=== PATIENT | female | born 1955 | race Caucasian/White ===

== ENCOUNTER 2020-04-07 15:12 | Emergency (ER) | payer OTHER ==
[~2020-04-07] VITALS: Ht 157.5 cm; Wt 72.6 kg
[~2020-04-07 15:12] MED LIST: OXYC10ER PO
[2020-04-07] MEDS ORDERED: Percocet 5-3251 EACH PO (16:54)
== END 2020-04-07 17:00 | disposition home or self-care (01) ==
LOC: ER 15:12
DX: M48.54XA Collapsed vertebra, not elsewhere classified, thoracic region, initial encounter for fracture (principal); Z87.828 Personal history of other (healed) physical injury and trauma; I25.2 Old myocardial infarction; E78.5 Hyperlipidemia, unspecified; F17.210 Nicotine dependence, cigarettes, uncomplicated; Z88.8 Allergy status to other drugs, medicaments and biological substances
CPT/HCPCS: 71045; 99283-25; A9270

== ENCOUNTER 2020-04-10 05:12 | Inpatient (IN) | payer OTHER ==
[~2020-04-10] VITALS: Ht 157.5 cm; Wt 77.7 kg
[~2020-04-10 05:12] MED LIST changes: +Percocet 5-3251 EACH PO
[2020-04-10 08:11] LABS: BASOPHILS ABSOLUTE AUTO 0.07 K/mm3 (0.00-0.23); BASOPHILS PERCENT AUTO 1 % (0-2); EOSINOPHILS ABSOLUTE AUTO 0.44 K/mm3 (0.00-0.68); EOSINOPHILS PERCENT AUTO 5 % (0-6); Hematocrit 39.1 % (33.0-51.0); Hemoglobin 12.6 g/dL (11.5-16.0); IMMATURE GRAN ABSOLUTE AUTO 0.03 K/mm3 (0.00-0.10); IMMATURE GRAN PERCENT AUTO 0 % (0-1); LYMPHOCYTES ABSOLUTE AUTO 1.67 K/mm3 (0.84-5.20); LYMPHOCYTES PERCENT AUTO 17 % (21-46); MONOCYTES ABSOLUTE AUTO 0.78 K/mm3 (0.16-1.47); MONOCYTES PERCENT AUTO 8 % (4-13); Mean Corpuscular HGB 28.8 pg (26.0-34.0); Mean Corpuscular HGB Conc 32.2 g/dL (31.5-36.5); Mean Corpuscular Volume 89 fL (80-100); NEUTROPHILS ABSOLUTE AUTO 6.72 K/mm3 (1.96-9.15); NEUTROPHILS PERCENT AUTO 69 % (41-73); Platelet Count 409 K/mm3 (150-400); RDW Coefficient Variation 13.8 % (11.7-14.2); RDW Standard Deviation 45.4 fL (35.1-46.3); Red Blood Cell Count 4.38 M/mm3 (3.80-5.20); White Blood Cell Count 9.71 K/mm3 (4.00-11.30)
[2020-04-10 08:14] LABS: Alanine Aminotransfer (ALT/SGP 30 U/L (12-78); Albumin, Blood 3.3 g/dL (3.4-5.0); Albumin/Globulin Ratio 0.9 (0.8-1.8); Alk Phos 111 U/L (50-136); Anion Gap 4 mmol/L (6-16); Aspartate Aminotrans (AST/SGOT 9 U/L (12-37); Bilirubin, Total 0.3 mg/dL (0.1-1.0); Blood Urea Nitrogen 13 mg/dL (8-24); Bun/Creatinine Ratio 22.8 (12.0-20.0); CO2, Blood 31 mmol/L (21-32); Calcium, Blood 9.2 mg/dL (8.5-10.1); Chloride, Blood 104 mmol/L (98-108); Creatinine, Blood 0.57 mg/dL (0.40-1.00); Globulin, Blood 3.8 g/dL (2.2-4.0); Glomerular Filtration Rate >60 (60-); Glucose, Blood 95 mg/dL (70-99); Potassium, Blood 4.3 mmol/L (3.5-5.5); Sodium, Blood 139 mmol/L (136-145); Total Protein, Blood 7.1 g/dL (6.4-8.2); Troponin I <0.015 ng/mL (0.000-0.040)
[2020-04-10 10:03] LABS: Influenza A, PCR NEGATIVE (NEGATIVE); Influenza B, PCR NEGATIVE (NEGATIVE); Resp Syncytial Virus, PCR NEGATIVE (NEGATIVE); SARS-Cov-2 (COVID-19) PCR, MMC NEGATIVE (NEGATIVE)
[2020-04-10] MEDS ORDERED: ZOLOFT100 M3 PO (16:08)
[2020-04-10] MEDS ORDERED: DIAZ5 PO (16:09)
[2020-04-10] MEDS ORDERED: TRAZ50 PO (16:10)
[2020-04-10] MEDS ORDERED: MELA3 PO (16:10)
[2020-04-10] MEDS ORDERED: HYDPAM50 PO (16:12)
[2020-04-10] MEDS ORDERED: ALBU90OI INH (16:13)
[2020-04-10] MEDS ORDERED: ASMANEX220 MC8 INH (16:16)
[2020-04-10] MEDS ORDERED: SPIRIVA RESPIMAT4 G2 NEB (16:17)
--- NOTE | 2020-04-10 18:17 | NUR ---
PT ADMITTED FROM ER FOR COPD. PT IS ALERT AND ORIENTED. PT ON 3 L O2 AND MANAGING WELL. NO ISSUES TO SKIN. LUNG SOUNDS DIMINISHED AT BASES. CALL LIGHT WITHIN REACH.
--- NOTE | 2020-04-10 19:05 | NUR ---
ASSUMED CARE RECEIVED REPORT FROM JIMMIE GALICIA. PT LYING IN BED, NO ACUTE DISTRESS NOTED. REQUESTING PAIN MEDICATION. WILL ASSESS AND MEDICATE PER EMAR. NO OTHER ACUTE NEEDS ASSESSED AT THIS TIME. CALL LIGHT, POSSESSIONS IN REACH, BED IN LOW POSITION. CONTINUE TO MONITOR.
--- NOTE | 2020-04-10 21:19 | NUR ---
SPOKE TO UMA JONES REGARDING PT'S UNRESOLVED PAIN, ORDERS RECEIVED. CONTINUE TO MONITOR.
[2020-04-11 03:54] LABS: PCO2 Arterial 47.1 mmHg (35-45); PO2 Arterial 61.2 mmHg (80-100); pH Blood Arterial 7.42 (7.35-7.45)
--- NOTE | 2020-04-11 04:18 | NUR ---
SHIFT SUMMARY PT RESTING, IN NO ACUTE DISTRESS. VS REVIEWED, WNL. PT SLEPT ON AND OFF T/O NIGHT. PAIN AND ANXIETY MANAGED WITH MEDS PER EMAR. PT ENCOURAGED TO PRONE SELF TO EASE RESPIRATORY EFFORT; DECLINED. ABLE TO SLEEP ON SIDE W/O DIFFICULTY. NO OTHER ACUTE CHANGES IN CONDITION NOTED. NO ACUTE NEEDS ASSESSED AT THIS TIME. CALL LIGHT, POSSESSIONS IN REACH, BED IN LOW POSITION. CONTINUE TO MONITOR, REPORT OFF TO DAY RN.
[2020-04-11 05:14] LABS: BASOPHILS ABSOLUTE AUTO 0.02 K/mm3 (0.00-0.23); BASOPHILS PERCENT AUTO 0 % (0-2); EOSINOPHILS PERCENT AUTO 0 % (0-6); Hematocrit 36.2 % (33.0-51.0); Hemoglobin 11.8 g/dL (11.5-16.0); IMMATURE GRAN ABSOLUTE AUTO 0.11 K/mm3 (0.00-0.10); IMMATURE GRAN PERCENT AUTO 1 % (0-1); LYMPHOCYTES ABSOLUTE AUTO 0.74 K/mm3 (0.84-5.20); LYMPHOCYTES PERCENT AUTO 5 % (21-46); MONOCYTES ABSOLUTE AUTO 0.16 K/mm3 (0.16-1.47); MONOCYTES PERCENT AUTO 1 % (4-13); Mean Corpuscular HGB 28.9 pg (26.0-34.0); Mean Corpuscular HGB Conc 32.6 g/dL (31.5-36.5); Mean Corpuscular Volume 89 fL (80-100); Mean Platelet Volume 9.2 fL (9.1-12.4); NEUTROPHILS ABSOLUTE AUTO 12.94 K/mm3 (1.96-9.15); NEUTROPHILS PERCENT AUTO 93 % (41-73); Platelet Count 394 K/mm3 (150-400); RDW Coefficient Variation 13.9 % (11.7-14.2); RDW Standard Deviation 45.4 fL (35.1-46.3); Red Blood Cell Count 4.08 M/mm3 (3.80-5.20); White Blood Cell Count 13.97 K/mm3 (4.00-11.30)
[2020-04-11 05:33] LABS: Anion Gap 4 mmol/L (6-16); Blood Urea Nitrogen 18 mg/dL (8-24); Bun/Creatinine Ratio 32.4 (12.0-20.0); CO2, Blood 29 mmol/L (21-32); Chloride, Blood 108 mmol/L (98-108); Creatinine, Blood 0.56 mg/dL (0.40-1.00); Glomerular Filtration Rate >60 (60-); Glucose, Blood 196 mg/dL (70-99); Potassium, Blood 4.4 mmol/L (3.5-5.5); Sodium, Blood 141 mmol/L (136-145)
[2020-04-11 11:12] LABS: U Amphetamine Screen DETECTED; U Barbituate Screen Not Detected; U Cocaine Screen Not Detected; U Methamphetamine Screen DETECTED
[2020-04-11 11:13] LABS: U Benzodiazapine Screen DETECTED; U Buprenorphine Screen Not Detected; U Cannabinoids Screen Not Detected; U Methadone Screen Not Detected; U Opiates Screen Not Detected; U Oxycodone Screen DETECTED; U Phencyclidine Screen Not Detected; U Propoxyphene Screen Not Detected
--- NOTE | 2020-04-11 16:40 | NUR ---
PT STATED IT WAS VERY PAINFUL WITH ADMINISTRATION OF MEDS. PULLED. PT HAS THREATENED TO LEAVE AMA SO WILL START NEW ONE WHEN SHE MAKES A DECISION. SLEEPING NOW. DOCTOR NOTIFIED.
--- NOTE | 2020-04-11 16:42 | NUR ---
PT HAS BEEN ANGRY MOST OF THE SHIFT. SHE STATES SHE IS NOT GETTING HER MEDS LIKE SHE DOES AT HOME. PT WAS THE ONE WHO GAVE NURSE HER MEDICATION AMOUNTS AND TIMES UPON ADMIT. PT IS OFTEN ANGRY IN ROOM SLAMMING BEDSIDE TABLE AROUND. SHE COMPLAINED OF PAIN WITH IV ADMINISTRATION SO IT WAS REMOVED PER HER REQUEST. NO NEW IV STARTED UNTIL PT HAS DECIDED WHAT HER PLANS ARE. PT GIVEN TORDOL SOON IT WAS TIME. 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 PT IS SLEEPING AT THIS TIME. DOCTOR NOTIFIED OF PT INTENT TO LEAVE AMA
--- NOTE | 2020-04-11 18:30 | NUR ---
Spiritualo care note: Cindy was quite angry and had no interest in speaking to product safety technical assistant. Advised I would remain available.
--- NOTE | 2020-04-11 19:39 | NUR ---
SPOKE WITH PT ABOUT WHETHER OR NOT SHE WAS PLANNING ON LEAVING AMA. PER REPORT PT HAD ALREADY STATED THAT SHE WAS GOING TO LEAVE AMA AND THEN ROLLED OVER AND WENT TO SLEEP. PT STATED THAT IT WAS UP TO "US". I EDUCATED PT ON HER RIGHTS. SHE STATED THAT SHE WILL WAIT UNTIL SHE CAN SPEAK WITH THE DOCTOR AGAIN. I INFORMED PT THAT THIS WOULD NOT BE UNTIL THE MORNING AND PT AGREED TO STAY FOR NOW. PT REQUESTED PAIN MEDICATION BUT IV WAS REMOVED SO PT COULD LEAVE AMA. PT HAD PERCOCET ORDERED SO THIS WAS GIVEN. HAND COUNTER AWARE OF NEED FOR NEW IV.
[2020-04-12] MEDS ORDERED: ACET325 PO (02:53)
--- NOTE | 2020-04-12 04:48 | NUR ---
SHIFT SUMMARY PT VERY ANGRY AND UPSET AT START OF SHIFT, INITIALLY PLANNING ON LEAVING AMA. PT DECIDED SHE WAS GOING TO STAY AND THEN BECAME VERY UPSET WHEN THIS RN WENT TO REMOVE HER LIDOCAINE PATCH PER ORDER SHE REPORTS THAT SHE WAS TOLD THAT IT WAS A FENTANYL PATCH. PT SPENT THE NEXT HOUR OR SO ON THE PHONE ATTEMPTING TO FIND OUT IF SHE WOULD HAVE TO PAY FOR HER VISIT IF SHE LEFT AMA. PT EVENTUALLY DECIDED TO STAY THROUGH THE NIGHT AGAIN. NEW IV PLACED TO RFA AT THIS TIME. PT EXPRESSED THAT SHE WAS UPSET BECAUSE SHE WAS TOLD THAT HER PAIN WOULD BE MANAGED BETTER. MEDICATED W/ ORDERED 1 MG IV DILAUDID. PT REPORTS SOME IMPROVEMENT AND CALMS DOWN. BREATHING IS LABORED WHILE AWAKE. THROATY BREATHING, ALMOST SOUNDING LIKE A DEEP STRIDOR. CONSULTED WITH RT MULTIPLE TIMES. PT REPORTS THAT THIS IS NOT ABNORMAL FOR HER AND SHE HAS HAD DIFFICULTIES FROM A PAST NECK SURGERY WHERE A NERVE WAS HIT UNINTENTIONALLY. PT REPORTS THAT SHE DOES NOT FEEL LIKE SHE IS HAVING DIFFICULTY BREATHING RELATED TO IT. PT DOES REPORT SOME SOB AND DIFFICULTY TAKING A DEEP BREATH RELATED TO PAIN FROM THORACIC FX. PT HAS MOIST SOUNDING NONPRODUCTIVE COUGH. LUNG SOUNDS MOSTLY JUST DECREASED THROUGHOUT. BREATHING TX'S PROVIDED BY RT THROUGHOUT THE NIGHT. PT MEDICATED FOR PAIN X 2 AND ANXIETY X 1. PT ON 2-3 L O2 VIA NC WITH O2 SATS IN THE MID 90'S. 85% ON RA. VITAL SIGNS HAVE BEEN STABLE. PT RESTING IN BED AT THIS TIME. WILL CONTINUE TO MONITOR AND REPORT TO DAY RN.
[2020-04-12] MEDS ORDERED: ALEN70 PO (14:54)
[2020-04-12] MEDS ORDERED: IPRAT-ALBUT 0.5-3 ML INH (15:02)
[2020-04-12] MEDS ORDERED: ZYRTEC10 M2 PO (15:03)
[2020-04-12] MEDS ORDERED: CYCL10 PO (15:04)
[2020-04-12] MEDS ORDERED: ETOD500 PO (15:05)
[2020-04-12] MEDS ORDERED: Flonase 0.05% N16 GM (15:06)
[2020-04-12] MEDS ORDERED: ROXICODONE5 MG PO (15:15)
--- NOTE | 2020-04-12 17:25 | NUR ---
SHIFT SUMMARY- PT A/O, PLEASANT AND COOPERATIVE T/O MOST OF THE DAY. PT INDEP UP TO BATHROOM. PT REPORTS UPPER BACK PAIN AND CHEST PAIN THAT INCREASES WITH RESPIRATIONS. LS COARSE AND DIMINISHED, PT WITH LABORED BREATHING THIS AM BUT DOES SEEM TO BE IMPROVED THIS EVENING AND NOT SO TACHY. SOB WITH EXERTION, MOIST NPC. PT MEDICATED WITH PERCOCET, FENTANYL PATCH STARTED TODAY. PT SLEPT ON AND OFF T/O THE DAY. NO OTHER ACUTE CHANGES THIS SHIFT.
--- NOTE | 2020-04-12 18:29 | NUR ---
PT AGITATED THIS EVENING THAT PEOPLE ARE LYING TO HER ABOUT THE MEDICATIONS, SHE REPORTS SHE TAKES SERTRALINE 200MG DAILY AND HYDROXYZINE 100MG BID PRN FOR ANXIETY AND USUALLY TAKES EVERY EVENING AT BEDTIME WITH TRAZADONE. THIS WAS VERIFIED WITH [facility] FOR DOS[facility]. SPOKE WITH DR ABEBE WHO REPORTS PUT PT BACK ON HOME DOSING. ORDERS UPDATED.
[2020-04-13 05:24] LABS: BASOPHILS ABSOLUTE AUTO 0.06 K/mm3 (0.00-0.23); BASOPHILS PERCENT AUTO 1 % (0-2); EOSINOPHILS ABSOLUTE AUTO 0.15 K/mm3 (0.00-0.68); EOSINOPHILS PERCENT AUTO 1 % (0-6); Hematocrit 39.4 % (33.0-51.0); Hemoglobin 12.6 g/dL (11.5-16.0); IMMATURE GRAN ABSOLUTE AUTO 0.05 K/mm3 (0.00-0.10); IMMATURE GRAN PERCENT AUTO 0 % (0-1); LYMPHOCYTES ABSOLUTE AUTO 3.07 K/mm3 (0.84-5.20); LYMPHOCYTES PERCENT AUTO 24 % (21-46); MONOCYTES ABSOLUTE AUTO 0.87 K/mm3 (0.16-1.47); MONOCYTES PERCENT AUTO 7 % (4-13); Mean Corpuscular Volume 91 fL (80-100); Mean Platelet Volume 8.9 fL (9.1-12.4); NEUTROPHILS ABSOLUTE AUTO 8.42 K/mm3 (1.96-9.15); NEUTROPHILS PERCENT AUTO 67 % (41-73); Platelet Count 422 K/mm3 (150-400); RDW Coefficient Variation 13.9 % (11.7-14.2); RDW Standard Deviation 46.1 fL (35.1-46.3); Red Blood Cell Count 4.35 M/mm3 (3.80-5.20); White Blood Cell Count 12.62 K/mm3 (4.00-11.30)
[2020-04-13 05:39] LABS: Anion Gap 3 mmol/L (6-16); Blood Urea Nitrogen 16 mg/dL (8-24); Bun/Creatinine Ratio 26.5 (12.0-20.0); CO2, Blood 32 mmol/L (21-32); Chloride, Blood 105 mmol/L (98-108); Glomerular Filtration Rate >60 (60-); Glucose, Blood 96 mg/dL (70-99); Potassium, Blood 3.7 mmol/L (3.5-5.5); Sodium, Blood 140 mmol/L (136-145)
--- NOTE | 2020-04-13 05:47 | NUR ---
SHIFT SUMMARY PT CONTINUED TO REPORT BACK PAIN FROM FX THAT MAKES IT DIFFICULT FOR HER TO TAKE A DEEP BREATH. MEDICATED X 3 WITH 1 MG IV DILAUDID. PT ALSO HAS FENTANYL PATCH IN PLACE. PAIN MORE SEVERE WITH MOVEMENT. PRN ATARAX GIVEN WITH PT'S HS MEDICATIONS PT REPORTS THIS IS HOW SHE TAKES IT AT HOME. PT WAS MUCH LESS ANXIOUS AND ANGRY THIS SHIFT. SLEPT OFF AND ON THROUGHOUT THE NIGHT. REMAINS ON 3 L O2 NC WITH O2 SATS IN THE MID 90'S. CONTINUES TO HAVE THROATY LABORED BREATHING, THAT BECOMES MORE SEVERE WHEN TALKING A LOT OR WHEN SHE BECOMES ANXIOUS. IMPROVED FROM NIGHT BEFORE. BLOOD PRESSURE ELEVATED THIS AM BUT WAS TAKEN WHILE PT WAS PAINFUL. WILL RECHECK. OTHERWISE VSS. WILL CONTINUE TO MONITOR AND REPORT TO DAY RN.
[2020-04-13] MEDS ORDERED: FENTANYL1 EA10 TOP (10:16)
[2020-04-13] MEDS ORDERED: MIACALCIN200 UNIT/1 INH (10:18)
[2020-04-13] MEDS ORDERED: DOCUZEN 8.6-501 EACH PO (10:20)
[2020-04-13] MEDS ORDERED: LIDO700A20 TOP (10:20)
[2020-04-13] MEDS ORDERED: LATUDA20 M1 PO (10:21)
[2020-04-13] MEDS ORDERED: MELA3 PO (10:21)
[2020-04-13] MEDS ORDERED: Percocet 5-3251 EACH PO (10:22)
--- NOTE | 2020-04-13 12:48 | NUR ---
PT LEFT THE HOSPITAL AND DID NOT WAIT FOR THE OXYGEN. PT EDUCATED ABOUT THE IMPORTANCE OF HOME O2; BUT COULD NOT WAIT AND VERY AGITATED. PT WITH , WHO WAS ALSO VERY RUDE AND AGITATED AND NOT WANTING TO WAIT . AROUND 1100; /PARTNER CAME IN, WHICH HE WAS NOT SUPPOSED TO BECAUSE IT'S NOT TIME FOR VISITING HOURS- AND WAS VERY AGITATED AND VERY RUDE TO THIS NURSE AND ANOTHER STAFF. THIS NURSE AND FAITH DISCUSSED THAT THE CAN WAIT IN THE CAR SINCE IT IS PROTOCOL AND PT IS ALERT TO RECEIVE PT INSTRUCTIONS/EDUCATION MEDICATIONS. HE STATED THAT HE WANTS TO TALK WITH ANOTHER PERSONNEL THAT KNOWS AND VERY ANGRY. ENGINE SETTER SALLY TALKED TO THE PT ABOUT THE RISK OF GOING HOME WITHOUT O2 COULD BE , ESPECIALLY WITH HER CONDITION, BUT THIS PT IGNORED IT AND VERY ANGRY WITH A LOUD VOICE. PT DID NOT SIGN THE AMA FORM, BUT SIGNED THE DISCHARGE PAPER. PT GIVEN PACKET AND REFUSED TO BE EDUCATED ABOUT NEW MEDS AND FU APPOINTMENTS AND STATED "I DONT CARE AND I DONT WANT TO KNOW." IV DC'D AND VALUABLE ITEMS WITH PT. MEDICATIONS WAS FAXED TO THE PHARMACY AND PT AWARE. CALLED JIMMIE MATIAS WHO WAS WORKING FOR THE O2 OF THIS PT AND SHE STATED SHE WILL INFORM DOCTOR AND MIGHT HAVE TO SEND THE O2 TO THIS PT HOME. PT WAS NOT SEEN WHEN SHE ACTUALLY LEFT THE BUILDING BECAUSE THIS NURSE WAS AT THE OTHER PATIENT ROOM. ENGINE SETTER AWARE.
== END 2020-04-13 12:30 | disposition home or self-care (01) | DRG 189 ==
LOC: ER 05:12 → MEDS 10:42 → ERHOLD 10:42 → MEDS 15:48 → ENPENDDIS 04-13 09:28 → MEDS 04-13 12:30
PROVIDERS: Emergency Medicine; Internal Medicine; Nurse Practitioner Acute Care; ADMIT Family Medicine
DX: J96.21 Acute and chronic respiratory failure with hypoxia (principal); S22.050A Wedge compression fracture of T5-T6 vertebra, initial encounter for closed fracture; Z66 Do not resuscitate; F31.9 Bipolar disorder, unspecified; J44.9 Chronic obstructive pulmonary disease, unspecified; Z20.822 Contact with and (suspected) exposure to COVID-19; E78.5 Hyperlipidemia, unspecified; F32.9 Major depressive disorder, single episode, unspecified; M81.0 Age-related osteoporosis without current pathological fracture; F41.1 Generalized anxiety disorder; E28.2 Polycystic ovarian syndrome; F15.10 Other stimulant abuse, uncomplicated; G89.4 Chronic pain syndrome; F17.210 Nicotine dependence, cigarettes, uncomplicated; Z99.81 Dependence on supplemental oxygen; I25.2 Old myocardial infarction
CPT/HCPCS: 0241U; 36415; 36600; 71045; 71260; 80048; 80053; 82803; 83605; 83690; 84145; 84484; 85025; 87040; 87449; 93005; 93010; 94640; 94760; 94761; 96365-59; 96375-59; 96376-59; 97116; 97161; 99285-25; A9270; J0456; J0696; J1170; J1650; J1885; J2405; J2930; J3010; J3475; J7050; J7512; Q9967

== ENCOUNTER 2020-04-20 12:09 | Emergency (ER) | payer OTHER ==
[~2020-04-20] VITALS: Ht 162.6 cm; Wt 77.1 kg
[~2020-04-20 12:09] MED LIST changes: +ACET325 PO; +ALBU90OI INH; +ALEN70 PO; +ASMANEX220 MC8 INH; +CYCL10 PO; +DIAZ5 PO; +DOCUZEN 8.6-501 EACH PO; +ETOD500 PO; +FENTANYL1 EA10 TOP; +Flonase 0.05% N16 GM; +HYDPAM50 PO; +IPRAT-ALBUT 0.5-3 ML INH; +LATUDA20 M1 PO; +LIDO700A20 TOP; +MELA3 PO; +MIACALCIN200 UNIT/1 INH; +ROXICODONE5 MG PO; +SPIRIVA RESPIMAT4 G2 NEB; +TRAZ50 PO; +ZOLOFT100 M3 PO; +ZYRTEC10 M2 PO
[2020-04-20 13:18] LABS: BASOPHILS ABSOLUTE AUTO 0.05 K/mm3 (0.00-0.23); BASOPHILS PERCENT AUTO 0 % (0-2); EOSINOPHILS ABSOLUTE AUTO 0.28 K/mm3 (0.00-0.68); EOSINOPHILS PERCENT AUTO 2 % (0-6); Hematocrit 39.8 % (33.0-51.0); IMMATURE GRAN ABSOLUTE AUTO 0.06 K/mm3 (0.00-0.10); IMMATURE GRAN PERCENT AUTO 0 % (0-1); LYMPHOCYTES PERCENT AUTO 6 % (21-46); MONOCYTES ABSOLUTE AUTO 0.79 K/mm3 (0.16-1.47); MONOCYTES PERCENT AUTO 5 % (4-13); Mean Corpuscular HGB 28.5 pg (26.0-34.0); Mean Corpuscular HGB Conc 32.7 g/dL (31.5-36.5); Mean Corpuscular Volume 87 fL (80-100); Mean Platelet Volume 8.7 fL (9.1-12.4); NEUTROPHILS PERCENT AUTO 86 % (41-73); Platelet Count 357 K/mm3 (150-400); RDW Coefficient Variation 13.1 % (11.7-14.2); Red Blood Cell Count 4.56 M/mm3 (3.80-5.20); White Blood Cell Count 15.98 K/mm3 (4.00-11.30)
[2020-04-20 13:50] LABS: Alanine Aminotransfer (ALT/SGP 28 U/L (12-78); Albumin, Blood 3.2 g/dL (3.4-5.0); Albumin/Globulin Ratio 0.9 (0.8-1.8); Alk Phos 107 U/L (50-136); Anion Gap 5 mmol/L (6-16); Aspartate Aminotrans (AST/SGOT 13 U/L (12-37); Bilirubin, Total 0.4 mg/dL (0.1-1.0); Blood Urea Nitrogen 14 mg/dL (8-24); Bun/Creatinine Ratio 23.5 (12.0-20.0); CO2, Blood 28 mmol/L (21-32); Calcium, Blood 8.9 mg/dL (8.5-10.1); Chloride, Blood 107 mmol/L (98-108); Globulin, Blood 3.7 g/dL (2.2-4.0); Glomerular Filtration Rate >60 (60-); Glucose, Blood 97 mg/dL (70-99); Potassium, Blood 4.2 mmol/L (3.5-5.5); Sodium, Blood 140 mmol/L (136-145); Total Protein, Blood 6.9 g/dL (6.4-8.2); Troponin I <0.015 ng/mL (0.000-0.040)
[2020-04-20] MEDS ORDERED: OXAYDO5 M1 PO (16:34)
--- NOTE | 2020-04-20 18:58 | NUR ---
Pt very very anxious and paranoid stuggles to follow conversation due to pain and her anexiety. She fears leaving her dogs. She is out of pain meds and and having spasms. pt sitting up on side of bed trying to splint her chest due to the back pain. She refused to be admitted. Thried twice to get her to agree. Discussted her [facility] benefits her mental illness her substance abuse. Pt is frail and needs more assistance. Supenct she is getting forgetfull and loosing some abilites. She states her nephew has been trying to help her more. pt wants hospice and to be with her dogs. ADvised her she may need iam in patient time and treatment. Will get hospice consult and suggest ethic consult on this case. Will work with pet care associate on thursday to contact [place].
== END 2020-04-20 17:00 | disposition home or self-care (01) ==
LOC: ER 12:09
PROVIDERS: Physician Assistant
DX: M48.54XA Collapsed vertebra, not elsewhere classified, thoracic region, initial encounter for fracture (principal); J44.9 Chronic obstructive pulmonary disease, unspecified; E78.5 Hyperlipidemia, unspecified; I25.2 Old myocardial infarction; F17.210 Nicotine dependence, cigarettes, uncomplicated; Z88.8 Allergy status to other drugs, medicaments and biological substances; Z99.81 Dependence on supplemental oxygen; Z79.899 Other long term (current) drug therapy; Z79.51 Long term (current) use of inhaled steroids
CPT/HCPCS: 36415; 71046; 80053; 84484; 85025; 93005; 93010; 99284-25; A9270

== ENCOUNTER 2020-04-23 09:10 | Emergency (ER) | payer OTHER ==
[~2020-04-23] VITALS: Ht 157.5 cm; Wt 77.1 kg
[~2020-04-23 09:10] MED LIST changes: +OXAYDO5 M1 PO
[2020-04-23 10:15] LABS: BASOPHILS ABSOLUTE AUTO 0.06 K/mm3 (0.00-0.23); BASOPHILS PERCENT AUTO 1 % (0-2); EOSINOPHILS ABSOLUTE AUTO 0.32 K/mm3 (0.00-0.68); EOSINOPHILS PERCENT AUTO 3 % (0-6); Hematocrit 39.9 % (33.0-51.0); IMMATURE GRAN ABSOLUTE AUTO 0.05 K/mm3 (0.00-0.10); IMMATURE GRAN PERCENT AUTO 1 % (0-1); LYMPHOCYTES ABSOLUTE AUTO 1.22 K/mm3 (0.84-5.20); LYMPHOCYTES PERCENT AUTO 12 % (21-46); MONOCYTES ABSOLUTE AUTO 0.56 K/mm3 (0.16-1.47); MONOCYTES PERCENT AUTO 6 % (4-13); Mean Corpuscular HGB 28.7 pg (26.0-34.0); Mean Corpuscular HGB Conc 32.6 g/dL (31.5-36.5); Mean Corpuscular Volume 88 fL (80-100); Mean Platelet Volume 8.9 fL (9.1-12.4); NEUTROPHILS ABSOLUTE AUTO 7.63 K/mm3 (1.96-9.15); NEUTROPHILS PERCENT AUTO 78 % (41-73); Platelet Count 431 K/mm3 (150-400); RDW Standard Deviation 42.4 fL (35.1-46.3); Red Blood Cell Count 4.53 M/mm3 (3.80-5.20); White Blood Cell Count 9.84 K/mm3 (4.00-11.30)
[2020-04-23 10:46] LABS: Alanine Aminotransfer (ALT/SGP 41 U/L (12-78); Albumin, Blood 3.2 g/dL (3.4-5.0); Albumin/Globulin Ratio 0.8 (0.8-1.8); Alk Phos 119 U/L (50-136); Anion Gap 2 mmol/L (6-16); Aspartate Aminotrans (AST/SGOT 26 U/L (12-37); Bilirubin, Total 0.3 mg/dL (0.1-1.0); Blood Urea Nitrogen 17 mg/dL (8-24); Bun/Creatinine Ratio 27.4 (12.0-20.0); CO2, Blood 32 mmol/L (21-32); Calcium, Blood 9.8 mg/dL (8.5-10.1); Chloride, Blood 104 mmol/L (98-108); Creatinine, Blood 0.62 mg/dL (0.40-1.00); Globulin, Blood 4.2 g/dL (2.2-4.0); Glomerular Filtration Rate >60 (60-); Glucose, Blood 106 mg/dL (70-99); Potassium, Blood 4.5 mmol/L (3.5-5.5); Sodium, Blood 138 mmol/L (136-145); Total Protein, Blood 7.4 g/dL (6.4-8.2)
[2020-04-23 11:26] LABS: Source, Urine Voided
[2020-04-23 11:43] LABS: Appearance, Urine Clear (Clear); Bilirubin, Urine Neg (Neg); Blood, Urine 1+ (Neg); Color, Urine Yellow (P-Yellow); Glucose Qualitative, Urine Neg (Neg); Ketones, Urine Neg (Neg); Leukocyte Esterase, Urine 2+ (Neg); Nitrite, Urine Neg (Neg); Protein, Urine Neg (Neg); Urobilinogen, Urine NORM (Normal)
[2020-04-23 12:25] LABS: Bacteria Rare /hpf; Squamous Epithelial Cells Few /hpf (Few); Transitional Epithelial Cells Rare /hpf (0-Rare)
[2020-04-23] MEDS ORDERED: Neurontin 100100 MG PO (14:32)
[2020-04-23] MEDS ORDERED: IBUP600 PO (14:32)
--- NOTE | 2020-04-23 20:08 | NUR ---
Spoke with mrs george in ER this morning. continue to have significant pain and dyspnea. pt may be declining in her abilites and cognition. Spoke with car managment team about [facility] getting more involved in care and hospice. pt get very anxious and paranoid and fearfull of leaving her dogs and her home. Refuses admission to hospital. Will contact [facility] and [facility]PS as pt high risk for injury.
--- NOTE | 2020-04-24 08:47 | NUR ---
call to [place] palliative care team and APS to help pt.
--- NOTE | 2020-04-24 13:53 | NUR ---
REturn call from APS pt under 65 may not be able to help. Will look at services. Recieved call from [facility] from palliative nurse. Pt has had phone follow ups from her mental health worker. She has not made her in person appointments. Called pt to review plan of care suggested she ask for wheel chair transport. Review strtegies of help. Suggested she get respite care from [facility] [place] for her dogs if she needs time in the hospital.
--- NOTE | 2020-04-27 13:21 | NUR ---
[facility].
== END 2020-04-23 14:58 | disposition home or self-care (01) ==
LOC: ER 09:10
PROVIDERS: Emergency Medicine; Physician Assistant
DX: M54.16 Radiculopathy, lumbar region (principal); J44.9 Chronic obstructive pulmonary disease, unspecified; Z88.8 Allergy status to other drugs, medicaments and biological substances; Z79.899 Other long term (current) drug therapy
CPT/HCPCS: 36415; 80053; 81001; 83690; 85025; 87086; 96374; 96375; 96376; 99284-25; J1885

== ENCOUNTER 2020-04-27 15:17 | Emergency (ER) | payer OTHER, MEDICARE ==
[~2020-04-27] VITALS: Ht 157.5 cm; Wt 77.1 kg
[~2020-04-27 15:17] MED LIST changes: +IBUP600 PO; +Neurontin 100100 MG PO
[2020-04-27 16:01] LABS: BASOPHILS ABSOLUTE AUTO 0.07 K/mm3 (0.00-0.23); BASOPHILS PERCENT AUTO 1 % (0-2); EOSINOPHILS PERCENT AUTO 4 % (0-6); Hematocrit 39.9 % (33.0-51.0); Hemoglobin 13.3 g/dL (11.5-16.0); IMMATURE GRAN ABSOLUTE AUTO 0.04 K/mm3 (0.00-0.10); IMMATURE GRAN PERCENT AUTO 0 % (0-1); LYMPHOCYTES ABSOLUTE AUTO 2.25 K/mm3 (0.84-5.20); LYMPHOCYTES PERCENT AUTO 21 % (21-46); MONOCYTES PERCENT AUTO 8 % (4-13); Mean Corpuscular HGB 28.5 pg (26.0-34.0); Mean Corpuscular HGB Conc 33.3 g/dL (31.5-36.5); Mean Corpuscular Volume 85 fL (80-100); Mean Platelet Volume 8.5 fL (9.1-12.4); NEUTROPHILS ABSOLUTE AUTO 6.97 K/mm3 (1.96-9.15); NEUTROPHILS PERCENT AUTO 66 % (41-73); Platelet Count 556 K/mm3 (150-400); RDW Coefficient Variation 12.8 % (11.7-14.2); RDW Standard Deviation 39.8 fL (35.1-46.3); Red Blood Cell Count 4.67 M/mm3 (3.80-5.20); White Blood Cell Count 10.53 K/mm3 (4.00-11.30)
[2020-04-27 16:20] LABS: Alanine Aminotransfer (ALT/SGP 25 U/L (12-78); Albumin, Blood 3.5 g/dL (3.4-5.0); Albumin/Globulin Ratio 0.9 (0.8-1.8); Alk Phos 102 U/L (50-136); Anion Gap 5 mmol/L (6-16); Aspartate Aminotrans (AST/SGOT 13 U/L (12-37); Bilirubin, Total 0.3 mg/dL (0.1-1.0); Blood Urea Nitrogen 17 mg/dL (8-24); Bun/Creatinine Ratio 26.6 (12.0-20.0); CO2, Blood 28 mmol/L (21-32); Calcium, Blood 9.6 mg/dL (8.5-10.1); Chloride, Blood 105 mmol/L (98-108); Creatinine, Blood 0.64 mg/dL (0.40-1.00); Globulin, Blood 3.8 g/dL (2.2-4.0); Glomerular Filtration Rate >60 (60-); Glucose, Blood 104 mg/dL (70-99); Potassium, Blood 4.3 mmol/L (3.5-5.5); Sodium, Blood 138 mmol/L (136-145); Total Protein, Blood 7.3 g/dL (6.4-8.2)
[2020-04-27] MEDS ORDERED: Percocet 5-3251 EACH PO (16:54)
--- NOTE | 2020-04-27 17:58 | NUR ---
Several calls To the [facility] for assistance with a hospice plan. Pt has had several visits to the emergency room and the [facility]. Pt has significant history of bipolar. She has been missing her phone appointments for medication managment. Her struggles with dyspnea has been more difficult due to t6 fracture of the spine. Pt has significant anexiety states she at one time had significant aspiration until they did a repeat fussion on her neck. 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 She has been very distraught by this information. She had a recent admission to hospital for respirtory failure. She is hesitant to be admitted again. She get anxious about being away from her dogs. Further assessment of her ADLS. She has stopped driving due to the fact her new care has safety features that keep telling her to pullman car clerk and rest. Therputic calls to patient for support. Advised her [facility] accepted her she denies need for any extr equipment she has oxygen [facility] the [facility].
== END 2020-04-27 17:09 | disposition home or self-care (01) ==
LOC: ER 15:17
PROVIDERS: Physician Assistant
DX: M48.54XA Collapsed vertebra, not elsewhere classified, thoracic region, initial encounter for fracture (principal); J44.9 Chronic obstructive pulmonary disease, unspecified; E78.5 Hyperlipidemia, unspecified; I25.2 Old myocardial infarction; F17.210 Nicotine dependence, cigarettes, uncomplicated; Z88.8 Allergy status to other drugs, medicaments and biological substances; Z79.899 Other long term (current) drug therapy
CPT/HCPCS: 36415; 71045; 80053; 85025; 96374; 96375; 99283-25; J1170; J2405

== ENCOUNTER 2020-08-13 18:24 | Emergency (ER) | payer OTHER, MEDICARE ==
[~2020-08-13] VITALS: Ht 157.5 cm; Wt 63.5 kg
[2020-08-13] MEDS ORDERED: HALO2 PO (18:37)
[2020-08-13 19:00] LABS: BASOPHILS ABSOLUTE AUTO 0.05 K/mm3 (0.00-0.23); BASOPHILS PERCENT AUTO 1 % (0-2); EOSINOPHILS ABSOLUTE AUTO 0.07 K/mm3 (0.00-0.68); EOSINOPHILS PERCENT AUTO 1 % (0-6); Hematocrit 40.8 % (33.0-51.0); Hemoglobin 13.7 g/dL (11.5-16.0); IMMATURE GRAN ABSOLUTE AUTO 0.03 K/mm3 (0.00-0.10); IMMATURE GRAN PERCENT AUTO 0 % (0-1); LYMPHOCYTES ABSOLUTE AUTO 2.93 K/mm3 (0.84-5.20); LYMPHOCYTES PERCENT AUTO 29 % (21-46); MONOCYTES ABSOLUTE AUTO 0.61 K/mm3 (0.16-1.47); MONOCYTES PERCENT AUTO 6 % (4-13); Mean Corpuscular HGB 27.5 pg (26.0-34.0); Mean Corpuscular HGB Conc 33.6 g/dL (31.5-36.5); Mean Corpuscular Volume 82 fL (80-100); Mean Platelet Volume 9.3 fL (9.1-12.4); NEUTROPHILS ABSOLUTE AUTO 6.39 K/mm3 (1.96-9.15); NEUTROPHILS PERCENT AUTO 63 % (41-73); Platelet Count 395 K/mm3 (150-400); RDW Standard Deviation 44.8 fL (35.1-46.3); Red Blood Cell Count 4.99 M/mm3 (3.80-5.20); White Blood Cell Count 10.08 K/mm3 (4.00-11.30)
[2020-08-13 19:22] LABS: Alanine Aminotransfer (ALT/SGP 16 U/L (12-78); Albumin, Blood 3.5 g/dL (3.4-5.0); Albumin/Globulin Ratio 0.9 (0.8-1.8); Alk Phos 83 U/L (50-136); Anion Gap 5 mmol/L (6-16); Aspartate Aminotrans (AST/SGOT 9 U/L (12-37); Bilirubin, Total 0.4 mg/dL (0.1-1.0); Blood Urea Nitrogen 8 mg/dL (8-24); Bun/Creatinine Ratio 13.1 (12.0-20.0); CO2, Blood 25 mmol/L (21-32); Calcium, Blood 9.4 mg/dL (8.5-10.1); Chloride, Blood 107 mmol/L (98-108); Creatinine, Blood 0.61 mg/dL (0.40-1.00); Globulin, Blood 3.7 g/dL (2.2-4.0); Glomerular Filtration Rate >60 (60-); Glucose, Blood 104 mg/dL (70-99); Sodium, Blood 137 mmol/L (136-145); Total Protein, Blood 7.2 g/dL (6.4-8.2)
[2020-08-13] MEDS ORDERED: Miralax17 GM PO (19:57)
== END 2020-08-13 19:40 | disposition home or self-care (01) ==
LOC: ER 18:24
PROVIDERS: Emergency Medicine
DX: K59.00 Constipation, unspecified (principal); J44.9 Chronic obstructive pulmonary disease, unspecified; E78.5 Hyperlipidemia, unspecified; Z88.8 Allergy status to other drugs, medicaments and biological substances; F17.210 Nicotine dependence, cigarettes, uncomplicated
CPT/HCPCS: 36415; 80053; 83690; 85025; 93005; 93010; 99284-25

== ENCOUNTER 2020-08-26 13:58 | Emergency (ER) | payer OTHER ==
[~2020-08-26] VITALS: Ht 152.4 cm; Wt 65.8 kg
[~2020-08-26 13:58] MED LIST changes: +HALO2 PO; +Miralax17 GM PO
[2020-08-26 14:30] LABS: BASOPHILS ABSOLUTE AUTO 0.05 K/mm3 (0.00-0.23); BASOPHILS PERCENT AUTO 1 % (0-2); EOSINOPHILS ABSOLUTE AUTO 0.19 K/mm3 (0.00-0.68); EOSINOPHILS PERCENT AUTO 2 % (0-6); Hematocrit 43.3 % (33.0-51.0); Hemoglobin 14.6 g/dL (11.5-16.0); IMMATURE GRAN ABSOLUTE AUTO 0.03 K/mm3 (0.00-0.10); IMMATURE GRAN PERCENT AUTO 0 % (0-1); LYMPHOCYTES PERCENT AUTO 35 % (21-46); MONOCYTES ABSOLUTE AUTO 0.77 K/mm3 (0.16-1.47); MONOCYTES PERCENT AUTO 8 % (4-13); Mean Corpuscular HGB Conc 33.7 g/dL (31.5-36.5); Mean Corpuscular Volume 83 fL (80-100); Mean Platelet Volume 9.3 fL (9.1-12.4); NEUTROPHILS ABSOLUTE AUTO 5.29 K/mm3 (1.96-9.15); NEUTROPHILS PERCENT AUTO 54 % (41-73); Platelet Count 404 K/mm3 (150-400); RDW Coefficient Variation 15.4 % (11.7-14.2); RDW Standard Deviation 46.7 fL (35.1-46.3); Red Blood Cell Count 5.21 M/mm3 (3.80-5.20); White Blood Cell Count 9.73 K/mm3 (4.00-11.30)
[2020-08-26 14:55] LABS: Alanine Aminotransfer (ALT/SGP 23 U/L (12-78); Albumin/Globulin Ratio 1.2 (0.8-1.8); Alk Phos 85 U/L (50-136); Anion Gap 7 mmol/L (6-16); Aspartate Aminotrans (AST/SGOT 14 U/L (12-37); Bilirubin, Total 0.3 mg/dL (0.1-1.0); Blood Urea Nitrogen 20 mg/dL (8-24); Bun/Creatinine Ratio 35.8 (12.0-20.0); CO2, Blood 25 mmol/L (21-32); Calcium, Blood 9.6 mg/dL (8.5-10.1); Chloride, Blood 106 mmol/L (98-108); Creatinine, Blood 0.56 mg/dL (0.40-1.00); Globulin, Blood 3.3 g/dL (2.2-4.0); Glomerular Filtration Rate >60 (60-); Glucose, Blood 106 mg/dL (70-99); Sodium, Blood 138 mmol/L (136-145); Total Protein, Blood 7.3 g/dL (6.4-8.2); Troponin I <0.015 ng/mL (0.000-0.040)
[2020-08-26] MEDS ORDERED: Doxycycline Mo100 M1 PO (15:06)
== END 2020-08-26 15:32 | disposition home or self-care (01) ==
LOC: ER 13:58
PROVIDERS: Physician Assistant
DX: R06.00 Dyspnea, unspecified (principal); R07.1 Chest pain on breathing; Z79.899 Other long term (current) drug therapy
CPT/HCPCS: 36415; 71046; 80053; 84484; 85025; 93005; 93010; 99284-25

== ENCOUNTER 2020-12-29 11:05 | Emergency (ER) | payer OTHER ==
[~2020-12-29] VITALS: Ht 152.4 cm; Wt 43.1 kg
[~2020-12-29 11:05] MED LIST changes: +Doxycycline Mo100 M1 PO
[2020-12-29 12:10] LABS: BASOPHILS ABSOLUTE AUTO 0.05 K/mm3 (0.00-0.23); BASOPHILS PERCENT AUTO 1 % (0-2); EOSINOPHILS ABSOLUTE AUTO 0.14 K/mm3 (0.00-0.68); EOSINOPHILS PERCENT AUTO 2 % (0-6); Hematocrit 46.6 % (33.0-51.0); Hemoglobin 15.4 g/dL (11.5-16.0); IMMATURE GRAN ABSOLUTE AUTO 0.02 K/mm3 (0.00-0.10); IMMATURE GRAN PERCENT AUTO 0 % (0-1); LYMPHOCYTES ABSOLUTE AUTO 2.12 K/mm3 (0.84-5.20); LYMPHOCYTES PERCENT AUTO 27 % (21-46); MONOCYTES ABSOLUTE AUTO 0.52 K/mm3 (0.16-1.47); MONOCYTES PERCENT AUTO 7 % (4-13); Mean Corpuscular Volume 88 fL (80-100); Mean Platelet Volume 9.2 fL (9.1-12.4); NEUTROPHILS ABSOLUTE AUTO 5.01 K/mm3 (1.96-9.15); NEUTROPHILS PERCENT AUTO 64 % (41-73); Platelet Count 461 K/mm3 (150-400); RDW Coefficient Variation 12.8 % (11.7-14.2); RDW Standard Deviation 41.1 fL (35.1-46.3); Red Blood Cell Count 5.31 M/mm3 (3.80-5.20); White Blood Cell Count 7.86 K/mm3 (4.00-11.30)
[2020-12-29 12:35] LABS: Alanine Aminotransfer (ALT/SGP 19 U/L (12-78); Albumin, Blood 3.9 g/dL (3.4-5.0); Alk Phos 98 U/L (50-136); Anion Gap 5 mmol/L (6-16); Aspartate Aminotrans (AST/SGOT 12 U/L (12-37); Bilirubin, Total 0.5 mg/dL (0.1-1.0); Blood Urea Nitrogen 7 mg/dL (8-24); Bun/Creatinine Ratio 12.6 (12.0-20.0); CO2, Blood 27 mmol/L (21-32); Chloride, Blood 107 mmol/L (98-108); Creatinine, Blood 0.56 mg/dL (0.40-1.00); Globulin, Blood 3.8 g/dL (2.2-4.0); Glomerular Filtration Rate >60 (60-); Glucose, Blood 105 mg/dL (70-99); Potassium, Blood 3.9 mmol/L (3.5-5.5); Sodium, Blood 139 mmol/L (136-145); Total Protein, Blood 7.7 g/dL (6.4-8.2); Troponin I <0.015 ng/mL (0.000-0.040)
[2020-12-29 13:28] LABS: Source, Urine Clean Catch
[2020-12-29 13:36] LABS: Appearance, Urine Clear (Clear); Bilirubin, Urine Neg (Neg); Blood, Urine 2+ (Neg); Color, Urine Yellow (P-Yellow); Glucose Qualitative, Urine Neg (Neg); Ketones, Urine 2+ (Neg); Leukocyte Esterase, Urine 1+ (Neg); Nitrite, Urine Neg (Neg); Protein, Urine 2+ (Neg); Specific Gravity, Urine 1.025 (1.003-1.022); Urobilinogen, Urine NORM (Normal)
[2020-12-29 13:56] LABS: Bacteria Rare /hpf; Red Blood Cells, Urine 0-2 /hpf (0-2); Squamous Epithelial Cells Few /hpf (Few); Transitional Epithelial Cells Rare /hpf (0-Rare); White Blood Cells, Urine 0-2 /hpf (0-5)
[2020-12-29] MEDS ORDERED: NITR100CA PO (14:04)
[2020-12-29] MEDS ORDERED: Ventolin5 MG/1 ML INH (14:04)
[2020-12-29] MEDS ORDERED: PRED20 PO (14:04)
[2020-12-29 14:18] LABS: U Amphetamine Screen Not Detected; U Barbituate Screen Not Detected; U Benzodiazapine Screen Not Detected; U Buprenorphine Screen Not Detected; U Cannabinoids Screen DETECTED; U Cocaine Screen Not Detected; U Methadone Screen Not Detected; U Methamphetamine Screen Not Detected; U Opiates Screen Not Detected; U Oxycodone Screen DETECTED; U Phencyclidine Screen Not Detected; U Propoxyphene Screen Not Detected
== END 2020-12-29 14:26 | disposition home or self-care (01) ==
LOC: ER 11:05
PROVIDERS: Emergency Medicine; Physician Assistant
DX: J44.1 Chronic obstructive pulmonary disease with (acute) exacerbation (principal); R35.0 Frequency of micturition; R30.0 Dysuria; Z88.8 Allergy status to other drugs, medicaments and biological substances; Z79.899 Other long term (current) drug therapy; I25.2 Old myocardial infarction; E78.5 Hyperlipidemia, unspecified; G47.33 Obstructive sleep apnea (adult) (pediatric); F17.210 Nicotine dependence, cigarettes, uncomplicated
CPT/HCPCS: 36415; 71046; 80053; 81001; 84484; 85025; 87086; 93005; 93010; 94644; 96374; 99285-25; G0480; J2930

== ENCOUNTER 2023-07-30 14:16 | Inpatient (IN) | payer OTHER, MEDICARE ==
[~2023-07-30] VITALS: Ht 160 cm; Wt 63.0 kg
[~2023-07-30 14:16] MED LIST changes: -ASMANEX220 MC8 INH; +AZIT250 PO; +BUPRENORPHINE HC2 MG; +DULERA 100 MCG/13 GM INH; +HYDHCL25 PO; +MELATONIN5 M1 PO; +NITR100CA PO; +PRED20 PO; +SERT50 PO; +THERA-D2000 UNIT PO; +Ventolin5 MG/1 ML INH; -ZOLOFT100 M3 PO
[2023-07-30 14:43] LABS: BASOPHILS PERCENT AUTO 0 % (0-2); EOSINOPHILS ABSOLUTE AUTO 0.26 K/mm3 (0.00-0.68); EOSINOPHILS PERCENT AUTO 1 % (0-6); Hematocrit 39.8 % (33.0-51.0); Hemoglobin 13.4 g/dL (11.5-16.0); IMMATURE GRAN ABSOLUTE AUTO 0.24 K/mm3 (0.00-0.10); IMMATURE GRAN PERCENT AUTO 1 % (0-1); LYMPHOCYTES ABSOLUTE AUTO 1.57 K/mm3 (0.84-5.20); LYMPHOCYTES PERCENT AUTO 7 % (21-46); MONOCYTES ABSOLUTE AUTO 1.43 K/mm3 (0.16-1.47); MONOCYTES PERCENT AUTO 6 % (4-13); Mean Corpuscular HGB 28.9 pg (26.0-34.0); Mean Corpuscular HGB Conc 33.7 g/dL (31.5-36.5); Mean Corpuscular Volume 86 fL (80-100); Mean Platelet Volume 8.7 fL (9.1-12.4); NEUTROPHILS ABSOLUTE AUTO 19.16 K/mm3 (1.96-9.15); NEUTROPHILS PERCENT AUTO 84 % (41-73); Platelet Count 498 K/mm3 (150-400); RDW Standard Deviation 40.3 fL (35.1-46.3); Red Blood Cell Count 4.63 M/mm3 (3.80-5.20); White Blood Cell Count 22.76 K/mm3 (4.00-11.30)
[2023-07-30 14:57] LABS: Albumin, Blood 3.1 g/dL (3.4-5.0); Albumin/Globulin Ratio 0.8 (0.8-1.8); Bilirubin, Total 0.4 mg/dL (0.1-1.0); Bun/Creatinine Ratio 28.4 (12.0-20.0); Calcium, Blood 9.2 mg/dL (8.5-10.1); Creatinine, Blood 0.6 mg/dL (0.40-1.00); Globulin, Blood 3.7 g/dL (2.2-4.0); Potassium, Blood 4.4 mmol/L (3.5-5.5); Total Protein, Blood 6.8 g/dL (6.4-8.2)
[2023-07-30] MEDS ORDERED: Albuterol 2.5 MG/3 ML VIAL INH SCH (15:25)
[2023-07-30 15:50] LABS: Source, Urine Clean Catch
[2023-07-30 16:04] LABS: Appearance, Urine Clear (Clear); Bilirubin, Urine Neg (Neg); Blood, Urine 2+ (Neg); Color, Urine Yellow (P-Yellow); Glucose Qualitative, Urine Neg (Neg); Ketones, Urine Neg (Neg); Leukocyte Esterase, Urine 2+ (Neg); Nitrite, Urine Neg (Neg); Protein, Urine 1+ (Neg); Specific Gravity, Urine 1.015 (1.003-1.022); Urobilinogen, Urine NORM (Normal)
[2023-07-30 16:25] LABS: Bacteria Few /hpf; Red Blood Cells, Urine 0-2 /hpf (0-2); Squamous Epithelial Cells Few /hpf (Few); White Blood Cells, Urine 0-2 /hpf (0-5)
[2023-07-30] MEDS ORDERED: CefTRIAXone Sodium 1,000 MG in NS 100 ML IV ONE (18:15)
[2023-07-30] MEDS ORDERED: Doxycycline Hyclate 100 MG TAB PO ONE (18:15)
[2023-07-30] MEDS ORDERED: Dexamethasone Sod Phos 10 MG/ML 1ML VIAL IV ONE (18:20)
[2023-07-30] MEDS ORDERED: NS 1,000 ML IV SCH ×2 (18:20→20:15)
[2023-07-30] MEDS ORDERED: Acetaminophen 325 MG TABLET PO PRN (20:15)
[2023-07-30] MEDS ORDERED: Ondansetron HCl 2 MG / ML 2ML Vial IV PRN (20:15)
[2023-07-30] MEDS ORDERED: HydrOXYzine Pamoate 25 MG Cap PO PRN (20:20)
[2023-07-30] MEDS ORDERED: Ipratropium/Albuterol SulF 2.5-0.5MG/3 ML Amp INH SCH (20:20)
[2023-07-30] MEDS ORDERED: Albuterol 2.5 MG/3 ML VIAL INH PRN (20:20)
[2023-07-30] MEDS ORDERED: Ketorolac Tromethamine 15mg Vial IV ONE (20:45)
[2023-07-30] MEDS ORDERED: NS 1,300 ML IV ONE (21:00)
[2023-07-30 21:21] LABS: U Amphetamine Screen Not Detected; U Barbituate Screen Not Detected; U Benzodiazapine Screen Not Detected; U Buprenorphine Screen Not Detected; U Cannabinoids Screen Not Detected; U Cocaine Screen Not Detected; U Methadone Screen Not Detected; U Methamphetamine Screen Not Detected; U Opiates Screen Not Detected; U Oxycodone Screen Not Detected; U Phencyclidine Screen Not Detected
[2023-07-30 21:48] VITALS: BP 181/90
[2023-07-30 22:02] VITALS: BP 152/72
[2023-07-30] MEDS ORDERED: Nicotine 14 MG PATCH TOP SCH (23:40)
[2023-07-30] MEDS ORDERED: ALBU2.5V5 INH (23:53)
[2023-07-30] MEDS ORDERED: Aspir 8181 MG PO (23:54)
[2023-07-30] MEDS ORDERED: AMLO5 PO (23:54)
[2023-07-30] MEDS ORDERED: BELBUCA75 MCG BC (23:55)
[2023-07-30] MEDS ORDERED: ALEVE ARTHRITI100 GM TOP (23:56)
[2023-07-30] MEDS ORDERED: Cyclobenzaprine5 MG PO (23:56)
[2023-07-30] MEDS ORDERED: GABA300 PO (23:57)
[2023-07-30] MEDS ORDERED: FAMO20 PO (23:57)
[2023-07-30] MEDS ORDERED: LORA2 PO (23:58)
[2023-07-31] MEDS ORDERED: NARCAN4 M1 (00:02)
[2023-07-31] MEDS ORDERED: [UNRECOGNIZED DRUG - OTHER] MM (00:03)
[2023-07-31 03:30] VITALS: BP 142/72
[2023-07-31] MEDS ORDERED: Cyclobenzaprine HCl 10 MG Tab PO PRN (05:25)
[2023-07-31] MEDS ORDERED: Gabapentin 300 MG Cap PO PRN (05:30)
[2023-07-31 05:48] LABS: Hemoglobin 11.4 g/dL (11.5-16.0); Mean Corpuscular HGB 28.4 pg (26.0-34.0); Mean Corpuscular HGB Conc 32.6 g/dL (31.5-36.5); Mean Corpuscular Volume 87 fL (80-100); Mean Platelet Volume 9.1 fL (9.1-12.4); Platelet Count 402 K/mm3 (150-400); RDW Standard Deviation 41.3 fL (35.1-46.3); Red Blood Cell Count 4.01 M/mm3 (3.80-5.20); White Blood Cell Count 21.79 K/mm3 (4.00-11.30)
--- NOTE | 2023-07-31 06:09 | NUR ---
END OF SHIFT SUMMARY NEW ADMIT FOR SOB/PNA. PT ANXIOUS, RESTLESS, PULLING OFF CLOTHES WITH NO REGARD TO LINES/O2. PT ENCOURAGED TO ASK FOR ASSISTANCE IN ORDER TO PREVENT LINES FROM BEING PULLED OUT. PT OTHERWISE INDEPENDENT IN ROOM. ON 2L O2, ON CONT PULSE OX. HOME MEDS SENT TO PHARMACY, THEY WILL HOLD AND DISPENSE DOSES NEEDED DUE TO CONTROLLED SUBSTANCE. C/O BACK PAIN, ORDERS RECD TO RESTART FLEXERIL AND GABAPENTIN.
[2023-07-31 06:19] LABS: Bun/Creatinine Ratio 45.8 (12.0-20.0); Calcium, Blood 9.3 mg/dL (8.5-10.1); Creatinine, Blood 0.48 mg/dL (0.40-1.00); Potassium, Blood 4.8 mmol/L (3.5-5.5)
[2023-07-31] MEDS ORDERED: Azithromycin 500 MG in NS 250 ML IV SCH (07:00)
[2023-07-31 07:54] VITALS: BP 150/72
[2023-07-31] MEDS ORDERED: Misc. Tablet PO SCH (09:00)
[2023-07-31] MEDS ORDERED: Enoxaparin 40 MG/0.4 ML SYR SC SCH (09:00)
--- NOTE | 2023-07-31 11:58 | NUR ---
PT LEFT ROOM TO GO TO THE [facility] PT ON RA AT THIS TIME. THIS NURSE TOLD HER SHE NEEDED TO BE BACK WITHIN 1 HOUR. PT AGREES
--- NOTE | 2023-07-31 12:43 | NUR ---
MAD service request reviewed with medical floor RN attending to adjacent rooms. She indicates that the patient is agitated but essentially not engaging in disruptive conduct. Her imnpression was that intervention was not requisite at this time. If the conditions change please notify myself or Shanna Mcdonald Thank you for this consult. Trenton Carrasco, PhD, KEV
--- NOTE | 2023-07-31 13:33 | NUR ---
WHILE THIS NURSE WAS AT LUNCH, BREAK NURSE REPORTS THAT PATIENT'S DAUGHTER CALLED FOR PATIENT INFORMATION. WHEN RETURNING FROM BREAK THIS NURSE ASKED PATIENT IF THIS NURSE COULD RETURN HER DAUGHTER'S CALL. PT STATED "NO, MY DAUGHTER DID NOT CALL AND I DO NOT WANT YOU TO CALL HER BACK." WHEN THIS NURSE PT DOES NOT WANT THIS NURSE GIVING INFORMATION TO HER DAUGHTER.
[2023-07-31] MEDS ORDERED: CefTRIAXone Sodium 1,000 MG in NS 100 ML IV SCH ×2 (15:05→18:00)
[2023-07-31] MEDS ORDERED: MethylPREDNISolone Sod Succ 125 MG Vial IV SCH (16:00)
[2023-07-31 16:43] VITALS: BP 159/75
--- NOTE | 2023-07-31 17:47 | NUR ---
SHIFT SUMMARY PT AXO, EXTREMELY AGGITATED, AGGRESSIVE AND IRRITABLE WITH STAFF MOST OF THE SHIFT. PT THREATENING TO LEAVE AMA AND DEMANDING THIS HOSPITAL ARRANGE A RIDE. PT EDUCATED ABOUT INDICATIONS FOR TREATMENT AND RISKS ASSOCIATED WITH LEAVING. PT EXPRESSED CONCERN ABOUT HER DOGS HOME ALONE SINCE YESTERDAY AND STATING THAT THEYRE "GOING TO ." IF SHE STAYS. [place] DROPPED OFF HOME O2 AND PT AGAIN STATING SHE WANT'S TO LEAVE. DR ALMANZA NOTIFIED AND STEROIDS AND ANTIBIOTICS GIVEN EARLY IN CASE SHE DECIDED TO LEAVE AMA. PT CALM AT THIS TIME AND EATING DINNER. 1L VIA NC, AT 91%. PT GIVEN BOOKS TO READ TO HELP WITH BOREDOM. IV PATENT AND INFUSING PER EMAR. PT UP TO CHAIR, BED IN LOW POSITION, CALL LIGHT WITHIN REACH.
[2023-07-31 19:44] VITALS: BP 148/70
--- NOTE | 2023-07-31 21:22 | NUR ---
2100- PT REPORTS SHE DOES NOT WANT TO BE DNR STATUS ANY LONGER. WILL CONTACT PROVIDER TO CHANGE STATUS.
[2023-08-01 03:37] VITALS: BP 166/82
--- NOTE | 2023-08-01 03:43 | NUR ---
SUMMARY- PT HAS BEEN MOSTLY COOPERATIVE THIS SHIFT. PT GET SOB WITH EXTENDED EXERTION. PT DID WALK UNIT WITH SUPPLIED O2 AND TOLERATED WELL. PT REQUESTED TO BE FULL CODE. PROVIDER CALLED AND CHANGE WAS ORDERED. PT DENIES CX PAIN. PT HAS BEEN ABLE TO SLEEP SOUNDLY THIS SHOFT. PT ABLE TO TURN SELF IN BED. CALL LIGHT IN REACH.
[2023-08-01 05:07] LABS: BASOPHILS ABSOLUTE AUTO 0.03 K/mm3 (0.00-0.23); BASOPHILS PERCENT AUTO 0 % (0-2); EOSINOPHILS PERCENT AUTO 0 % (0-6); Hematocrit 38.2 % (33.0-51.0); Hemoglobin 12.6 g/dL (11.5-16.0); IMMATURE GRAN ABSOLUTE AUTO 0.22 K/mm3 (0.00-0.10); IMMATURE GRAN PERCENT AUTO 1 % (0-1); LYMPHOCYTES ABSOLUTE AUTO 0.98 K/mm3 (0.84-5.20); LYMPHOCYTES PERCENT AUTO 5 % (21-46); MONOCYTES ABSOLUTE AUTO 0.23 K/mm3 (0.16-1.47); MONOCYTES PERCENT AUTO 1 % (4-13); Mean Corpuscular HGB 28.8 pg (26.0-34.0); Mean Corpuscular Volume 87 fL (80-100); Mean Platelet Volume 8.7 fL (9.1-12.4); NEUTROPHILS ABSOLUTE AUTO 17.33 K/mm3 (1.96-9.15); NEUTROPHILS PERCENT AUTO 92 % (41-73); Platelet Count 453 K/mm3 (150-400); RDW Coefficient Variation 13.2 % (11.7-14.2); RDW Standard Deviation 42.7 fL (35.1-46.3); Red Blood Cell Count 4.37 M/mm3 (3.80-5.20); White Blood Cell Count 18.79 K/mm3 (4.00-11.30)
[2023-08-01 05:26] LABS: Bun/Creatinine Ratio 33.9 (12.0-20.0); Calcium, Blood 8.9 mg/dL (8.5-10.1); Creatinine, Blood 0.5 mg/dL (0.40-1.00); Potassium, Blood 4.4 mmol/L (3.5-5.5)
[2023-08-01 07:57] VITALS: BP 146/65
[2023-08-01] MEDS ORDERED: VISBIOME 112.51 EACH PO (10:45)
[2023-08-01] MEDS ORDERED: LEVOFLOXACIN750 MG PO (10:46)
[2023-08-01] MEDS ORDERED: Nicoderm Cq1 EAC1 TOP (10:47)
--- NOTE | 2023-08-01 13:17 | NUR ---
LATE ENTRY- PT DISCHARGED AT 1200. VERY ANXIOUS AND IRRITATED WITH STAFF, DISCHARGE INSTRUCTIONS DISCUSSED WITH PT. EMPHASIZED IMPORTANCE OF FOLLOWING UP WITH PCP AND TAKING MEDICATIONS PRESCRIBED. 2L NC, INDEPENDENT IN THE ROOM, PT INSTRUCTED TO CALL HERIBERTO WITH CARE MANAGEMENT TO FACILITATE HOME O2 DELIVERY.
== END 2023-08-01 11:51 | disposition home or self-care (01) | DRG 871 ==
LOC: ER 14:16 → MEDS 20:12 → ENPENDDIS 07-31 09:26 → MEDS 08-01 11:51
PROVIDERS: Emergency Medicine; Family Medicine; Nurse Practitioner Acute Care; Student in an Organized Health Care Education/Training Program; ADMIT Internal Medicine
DX: A41.9 Sepsis, unspecified organism (principal); J18.9 Pneumonia, unspecified organism; J96.01 Acute respiratory failure with hypoxia; J44.0 Chronic obstructive pulmonary disease with (acute) lower respiratory infection; J44.1 Chronic obstructive pulmonary disease with (acute) exacerbation; Z66 Do not resuscitate; R65.20 Severe sepsis without septic shock; F41.1 Generalized anxiety disorder; F15.11 Other stimulant abuse, in remission; F11.11 Opioid abuse, in remission; G89.4 Chronic pain syndrome; F31.9 Bipolar disorder, unspecified; I25.10 Atherosclerotic heart disease of native coronary artery without angina pectoris; E78.5 Hyperlipidemia, unspecified; M81.0 Age-related osteoporosis without current pathological fracture; G47.33 Obstructive sleep apnea (adult) (pediatric); F17.210 Nicotine dependence, cigarettes, uncomplicated; Z88.8 Allergy status to other drugs, medicaments and biological substances; Z79.899 Other long term (current) drug therapy; Z88.5 Allergy status to narcotic agent; I25.2 Old myocardial infarction; Z87.81 Personal history of (healed) traumatic fracture; Z98.1 Arthrodesis status
CPT/HCPCS: 36415; 71260; 80048; 80053; 81001; 83605; 83880; 84484; 85025; 85027; 87040; 87086; 93005; 93010; 94640; 94644; 94664; 94761; 94762; 96361; 96365-59; 96375-59; 99285-25; A9270; J0456; J0696; J1100; J1885; J2919; J7030; J7050; Q0177; Q9967